=== PATIENT | female | born 1970 | race Caucasian/White ===

== ENCOUNTER 2018-04-30 16:41 | Emergency (ER) | payer BC ==
[~2018-04-30] VITALS: Ht 167.6 cm; Wt 83.9 kg
[~2018-04-30 16:41] MED LIST: AMOXICILLIN 50500 MG PO; COLACE100 MG PO; HYDROCODONE-AP1 EAC6 PO; IBUPROFEN 400400 M2 PO; METAMUCIL PAC1 UDPKT PO; MIRALAX17 GM PO; NORCO 5-325 TA1 EACH PO; OXYCODONE HCL 55 MG PO; TRAMADOL 50 MG50 MG PO; XARELTO10 MG PO
[2018-04-30] MEDS ORDERED: CENTRUM SILVER1 EAC4 PO (17:04)
[2018-04-30] MEDS ORDERED: BIOTIN1 M1 PO (17:04)
[2018-04-30 17:38] LABS: URINE BILIRUBIN NEGATIVE (Negative); URINE BLOOD TRACE (Negative); URINE CLARITY CLEAR; URINE COLOR YELLOW; URINE GLUCOSE-RANDOM NEGATIVE (Negative); URINE KETONES NEGATIVE (Negative); URINE LEUKOCYTES NEGATIVE (Negative); URINE NITRITE NEGATIVE (Negative); URINE PROTEIN NEGATIVE (Negative); URINE SPECIFIC GRAVITY >= 1.030 (1.005-1.030); URINE UROBILINOGEN 0.2 E.U./dl (0.2-1.0)
[2018-04-30 17:42] LABS: AMP/METHAMP Negative (Negative); BARBITURATES Negative (Negative); BENZODIAZEPINES Negative (Negative); COCAINE Negative (Negative); METHADONE Negative (Negative); OPIATES Negative (Negative); PCP Negative (Negative); THC Negative (Negative)
[2018-04-30 17:47] LABS: HEMATOCRIT 40.5 % (37.0-47.0); HEMOGLOBIN 13.8 gm/dL (12.0-15.0); MCH 29.5 pg (26.0-34.0); MCHC 34.1 g/dL (28.0-37.0); MCV 86.6 fL (80.0-100.0); MPV 8.4 fl. (7.2-11.1); RBC 4.68 mil/uL (4.20-5.00); RDW-CV 12.7 % (10.5-14.5); WBC 8.1 thou/uL (4.0-11.0)
[2018-04-30 17:55] LABS: CALCIUM 8.7 mg/dL (8.5-10.1); CREATININE 1.1 mg/dL (0.6-1.3); POTASSIUM 3.7 mmol/L (3.5-5.1)
[2018-04-30 17:59] LABS: ALBUMIN 3.7 g/dL (3.4-5.0); TOTAL BILIRUBIN 0.2 mg/dL (<0.1-1.0); TOTAL PROTEIN 6.7 g/dL (6.4-8.2)
[2018-04-30 18:01] LABS: SALICYLATE < 2.8 mg/dL (2.8-20.0)
[2018-04-30 18:06] LABS: ACETAMINOPHEN < 2 ug/mL (10-30); ALCOHOL < 10 mg/dL (<10)
[2018-05-01 13:40] VITALS: BP 138/75
== END 2018-05-01 13:40 ==
LOC: M.ERS 16:41
PROVIDERS: Personal Emergency Response Attendant
DX: R45.851 Suicidal ideations (principal); Z98.890 Other specified postprocedural states; Z96.651 Presence of right artificial knee joint